=== PATIENT | male | born 1980 | race American Indian/Alaskan Native ===

== ENCOUNTER 2020-04-26 06:39 | Emergency (ER) | payer SELFPAY ==
[2020-04-26 06:49] VITALS: BP 128/86
--- NOTE | 2020-04-26 07:50 | Ultrasound Report ---
BILATERAL TESTICULAR ULTRASOUND HISTORY: Testicular pain. FINDINGS: Right testicle measures 5.2 x 2.1 x 2.9 cm. Left testicle measures 4.8 x 1.9 x 2.9 cm. Both testicles demonstrate appropriate flow. Negative for mass. Flow is appropriate. Small bilateral hydroceles. IMPRESSION: Small bilateral hydroceles. Signer Name: Ricardo Colivn MD Signed: 04/26/2020 7:46 AM Workstation Name: [id number]
[2020-04-26] MEDS ORDERED: HYDROcodone/ACETAMINOPHEN 10-325MG TAB PO ONE (08:55)
[2020-04-26] MEDS ORDERED: ONDANSETRON 4 MG ODT TAB PO ONE (08:55)
--- NOTE | 2020-04-26 09:15 | Emergency Department Report ---
ED General Adult HPI - General Chief complaint: Urogenital-Male Stated complaint: RT ARM PAIN/TESTICULAR PAIN Time Seen by Provider: 04/26/20 08:29 Source: patient Mode of arrival: Ambulatory Limitations: No Limitations - History of Present Illness Initial comments: The patient presents to the emergency department with a chief complaint of bilateral testicular pain that started 2 weeks ago. Patient describes the pain is dull in nature and made worse by any type of movement. He denies any recent trauma or concerns for STDs. Patient also complains of right hand pain is chronic in nature and states that has become worse with this new job which requires significant amount of use of his hands. -: Sudden Location: genitals Radiation: non-radiation Severity scale (0 -10): 7 Quality: aching, dull Consistency: constant Improves with: none Worsens with: none Associated Symptoms: denies other symptoms Treatments Prior to Arrival: none - Related Data Previous Rx's Medication Instructions Recorded Last Taken Type Acetaminophen/Codeine [Tylenol 1 tab PO Q6H PRN #15 tab 04/26/20 Unknown Rx /Codeine # 3 tab] Doxycycline Hyclate [Doxycycline 100 mg PO Q12HR #14 tab 04/26/20 Unknown Rx Hyclate TAB] Ibuprofen [Motrin] 800 mg PO Q8HR PRN #30 tablet 04/26/20 Unknown Rx Allergies Allergy/AdvReac Type Severity Reaction Status Date / Time No Known Allergies Allergy Verified 04/26/20 06:48 ED Review of Systems ROS: Stated complaint: RT ARM PAIN/TESTICULAR PAIN Other details as noted in HPI Comment: All other systems reviewed and negative Constitutional: denies: chills, fever Eyes: denies: eye pain, eye discharge, vision change ENT: denies: ear pain, throat pain Respiratory: denies: cough, shortness of breath, wheezing Cardiovascular: denies: chest pain, palpitations Endocrine: no symptoms reported Gastrointestinal: denies: abdominal pain, nausea, diarrhea Genitourinary: denies: urgency, dysuria Musculoskeletal: denies: back pain, joint swelling, arthralgia Skin: denies: rash, lesions Neurological: denies: headache, weakness, paresthesias Psychiatric: denies: anxiety, depression Hematological/Lymphatic: denies: easy bleeding, easy bruising ED Past Medical Hx - Past Medical History Previous Medical History?: Yes Hx Heart Attack/AMI: Yes Hx Asthma: Yes (as child) - Surgical History Past Surgical History?: No - Social History Smoking Status: Current Every Day Smoker Substance Use Type: Marijuana - Medications Home Medications: Home Medications Medication Instructions Recorded Confirmed Last Taken Type Acetaminophen/Codeine [Tylenol 1 tab PO Q6H PRN #15 tab 04/26/20 Unknown Rx /Codeine # 3 tab] Doxycycline Hyclate [Doxycycline 100 mg PO Q12HR #14 tab 04/26/20 Unknown Rx Hyclate TAB] Ibuprofen [Motrin] 800 mg PO Q8HR PRN #30 tablet 04/26/20 Unknown Rx ED Physical Exam - General Limitations: No Limitations General appearance: alert, in no apparent distress - Head Head exam: Present: atraumatic, normocephalic - Eye Eye exam: Present: normal appearance - ENT ENT exam: Present: mucous membranes moist - Neck Neck exam: Present: normal inspection - Respiratory Respiratory exam: Present: normal lung sounds bilaterally. Absent: respiratory distress - Cardiovascular Cardiovascular Exam: Present: regular rate, normal rhythm. Absent: systolic murmur, diastolic murmur, rubs, gallop - GI/Abdominal GI/Abdominal exam: Present: soft, normal bowel sounds. Absent: distended, tenderness - Rectal Rectal exam: Present: deferred - exam: Present: testicular tenderness. Absent: scrotal swelling - Extremities Exam Extremities exam: Present: normal inspection - Back Exam Back exam: Present: normal inspection - Neurological Exam Neurological exam: Present: alert, oriented X3, CN II-XII intact. Absent: motor sensory deficit - Psychiatric Psychiatric exam: Present: normal affect, normal mood - Skin Skin exam: Present: warm, dry, intact, normal color. Absent: rash ED Course Vital Signs 04/26/20 04/26/20 06:46 09:07 Temperature 97.9 F Pulse Rate 63 Respiratory 17 18 Rate Blood Pressure 128/86 O2 Sat by Pulse 97 Oximetry ED Medical Decision Making - Radiology Data Radiology results: report reviewed - Medical Decision Making Discussed results with patient Patient and I did discuss the issue with his right hand. Patient offered imaging but states that the pain is old in nature and is not concerned about a fracture. Discussed with patient the need to use a brace on that hand and to take anti-inflammatories Critical care attestation.: If time is entered above; I have spent that time in minutes in the direct care of this critically ill patient, excluding procedure time. ED Disposition Clinical Impression: Hydrocele of testis, Hand pain, right Disposition: DC-01 TO HOME OR SELFCARE Is pt being admited?: No Does the pt Need Aspirin: No Condition: Stable Instructions: Hydrocele, Adult, Hand Exercises, Hand Pain Additional Instructions: Return if worse Prescriptions: Doxycycline Hyclate [Doxycycline Hyclate TAB] 100 mg PO Q12HR #14 tab Ibuprofen [Motrin] 800 mg PO Q8HR PRN #30 tablet PRN Reason: Pain Acetaminophen/Codeine [Tylenol /Codeine # 3 tab] 1 tab PO Q6H PRN #15 tab PRN Reason: pain Referrals: PRIMARY CAREMD [Primary Care Provider] - 3-5 Days TASHA GOSS MD [Staff Physician] - 3-5 Days Time of Disposition: 09:51
[2020-04-26] MEDS ORDERED: LIDOCAINE-MPF (1%) 10 MG/1 ML VIAL 5 ML INFILTRATI ONE (09:30)
== END 2020-04-26 10:17 | disposition home or self-care (01) ==
LOC: ED 06:39
DX: N43.3 Hydrocele, unspecified (principal); M79.641 Pain in right hand; I25.2 Old myocardial infarction; J45.909 Unspecified asthma, uncomplicated; F17.200 Nicotine dependence, unspecified, uncomplicated; F12.10 Cannabis abuse, uncomplicated; Z79.899 Other long term (current) drug therapy
CPT/HCPCS: 93975; 96372; 99283; J0696; Q0162